=== PATIENT | male | born 1960 | race Caucasian/White ===

== ENCOUNTER 2019-03-27 12:58 | Inpatient (IN) | payer OTHER, SELFPAY ==
--- NOTE | 2019-03-27 13:39 | RAD REPORT ---
EXAM DESCRIPTION: RAD - Chest Single View - 03/27/2019 1:33 pm CLINICAL HISTORY: Syncope Chest pain. COMPARISON: No comparisons FINDINGS: Portable technique limits examination quality. The lungs are grossly clear. The heart is normal in size. No displaced fractures. IMPRESSION: No acute intrathoracic process suspected.
[2019-03-27 14:05] LABS: Basophils % 0.3 % (0-1.3); Eosinophils % 1.6 % (0-4.4); Hematocrit 42.8 % (39.6-49.0); MPV 9.9 fL (7.6-11.3); Monocytes % 6.2 % (3.3-12.3); RBC Red Blood Cell Count 4.77 M/uL (4.33-5.43)
[2019-03-27 14:06] LABS: Protime INR 1.04
[2019-03-27 14:19] LABS: ALT/SGPT 38 U/L (12-78); AST/SGOT 20 U/L (15-37); Albumin 3.9 g/dL (3.4-5.0); Alkaline Phosphatase 96 U/L (45-117); BUN Blood Urea Nitrogen 23 mg/dL (7-18); Bicarbonate 22 mmol/L (21-32); Bilirubin Direct 0.2 mg/dL (0-0.2); Bilirubin Total 0.9 mg/dL (0.2-1.0); Glucose Level 209 mg/dL (74-106); NT PRO-BNP 1570 pg/mL (<125); Potassium 3.9 mmol/L (3.5-5.1); Protein, Total 7.7 g/dL (6.4-8.2); Sodium Level 141 mmol/L (136-145); Troponin (Emerg Dept Use Only) < 0.02 ng/mL (0.0-0.045)
--- NOTE | 2019-03-27 14:57 | RAD REPORT ---
EXAM DESCRIPTION: CT - Chest For Pe Angio - 03/27/2019 2:49 pm CLINICAL HISTORY: Chest pain. SOB, palpitations COMPARISON: No comparisons TECHNIQUE: CT angiogram of the pulmonary arteries was performed with MIP. All CT scans are performed using dose optimization technique as appropriate and may include automated exposure control or mA/KV adjustment according to patient size. FINDINGS: Large bilateral pulmonary thromboembolism is seen including saddle embolism. Mild RV strai n pattern suspected. No acute aortic finding demonstrated. The lungs are mildly emphysematous. No significant pericardial or pleural fluid. Small hiatal hernia. No concerning bony finding. IMPRESSION: Large, extensive, bilateral pulmonary emboli are present including a saddle embolism. Mi ld RV strain pattern suspected. No acute lung findings. The findings were discussed with ER physician Dr. Leger on 03/27/2019 at 2:52 p.m. by telephone.
[2019-03-27] MEDS ORDERED: ENOXAPARIN 100 MG/ML SYR SQ ONE (15:02)
--- NOTE | 2019-03-27 15:23 | EDPHYS ---
Physician Documentation [facility] Name: Eugene Betancourt Age: 58 yrs Sex: Male : 1960 Arrival Date: 03/27/2019 Time: 13:01 Bed 25 Private MD: ED Physician Jeffrey Leger HPI: 03/27 14:16 This 58 yrs old Male presents to ER via EMS with complaints of Syncope. kdr 14:16 The patient has experienced syncope, became unresponsive, collapsed, lost kdr consciousness. Onset: The symptoms/episode began/occurred suddenly, just prior to arrival. Duration: This was a single episode, that lasted an unknown period of time. Context: the episode(s) was witnessed, by a bystander, occurred at work, occurred while the patient was working. 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 Since then he has traveled back to [place] and has had continued SOB, light headed and dizzy with any exertion. Today, he was preparing to get some paperwork signed prior to off-loading his cargo at [place] when he again became light headed and dizzy. He knelt down and then stood back up and passed out. He became unresponsive and was attended to by bystanders. He awoke with people standing over him. He currently has no c/o other in the ED. He does not feel SOB at rest and has no ROSAS or other c.o s/p fall from standing. . Historical: - Allergies: 13:15 No Known Allergies; aj1 - Home Meds: 13:15 meloxicam oral oral [Active]; Lisinopril Oral [Active]; atorvastatin oral oral aj1 [Active]; Metformin Oral [Active]; Omeprazole Oral [Active]; multivitamin oral oral [Active]; Vitamin D Oral [Active]; - PMHx: 13:15 Diabetes - NIDDM; melanoma removed; aj1 - Immunization history:: Flu vaccine is up to date. - Social history:: Smoking status: Patient/guardian denies using tobacco. - Ebola Screening: : Patient denies travel to an Ebola-affected area in the 21 days before illness onset. ROS: 14:16 Constitutional: Negative for fever, chills, and weight loss, Eyes: Negative for injury, kdr pain, redness, and discharge, ENT: Negative for injury, pain, and discharge, Neck: Negative for injury, pain, and swelling, Abdomen/GI: Negative for abdominal pain, nausea, vomiting, diarrhea, and constipation, Back: Negative for injury and pain, : Negative for injury, bleeding, discharge, and swelling, MS/Extremity: Negative for injury and deformity, Skin: Negative for injury, rash, and discoloration, Psych: Negative for depression, anxiety, suicide ideation, homicidal ideation, and hallucinations, Allergy/Immunology: Negative for hives, rash, and allergies, Endocrine: Negative for neck swelling, polydipsia, polyuria, polyphagia, and marked weight changes, Hematologic/Lymphatic: Negative for swollen nodes, abnormal bleeding, and unusual bruising. 14:16 Cardiovascular: Positive for palpitations, heart racing. 14:16 Cardiovascular: Negative for edema, orthopnea, palpitations, paroxysmal nocturnal dyspnea. 14:16 Respiratory: Positive for dyspnea on exertion, shortness of breath, Negative for cough, hemoptysis, orthopnea, pleurisy, sputum production, wheezing. Exam: 14:16 Constitutional: This is a well developed, well nourished patient who is awake, alert, kdr and in no acute distress. Head/Face: Normocephalic, atraumatic. Eyes: Pupils equal round and reactive to light, extra-ocular motions intact. Lids and lashes normal. Conjunctiva and sclera are non-icteric and not injected. Cornea within normal limits. Periorbital areas with no swelling, redness, or edema. Neck: Trachea midline, no thyromegaly or masses palpated, and no cervical lymphadenopathy. Supple, full range of motion without nuchal rigidity, or vertebral point tenderness. No Meningismus. Chest/axilla: Normal chest wall appearance and motion. Nontender with no deformity. No lesions are appreciated. Respiratory: Lungs have equal breath sounds bilaterally, clear to auscultation and percussion. No rales, rhonchi or wheezes noted. No increased work of breathing, no retractions or nasal flaring. Abdomen/GI: Soft, non-tender, with normal bowel sounds. No distension or tympany. No guarding or rebound. No evidence of tenderness throughout. Back: No spinal tenderness. No costovertebral tenderness. Full range of motion. Skin: Warm, dry with normal turgor. Normal color with no rashes, no lesions, and no evidence of cellulitis. MS/ Extremity: Pulses equal, no cyanosis. Neurovascular intact. Full, normal range of motion. Neuro: Awake and alert, GCS 15, oriented to person, place, time, and situation. Cranial nerves II-XII grossly intact. Motor strength 5/5 in all extremities. Sensory grossly intact. Cerebellar exam normal. Normal gait. Psych: Awake, alert, with orientation to person, place and time. Behavior, mood, and affect are within normal limits. 14:16 Cardiovascular: Rate: tachycardic, actual rate is 108 bpm, Rhythm: regular, Pulses: no pulse deficits are appreciated, Heart sounds: normal, Edema: is not appreciated, JVD: is not appreciated. 21:08 ECG was reviewed by the Attending Physician. kdr Vital Signs: 13:15 BP 140 / 94; Pulse 104; Resp 18; Temp 97.6; Pulse Ox 97% on R/A; Pain 0/10; aj1 14:01 BP 149 / 96; Pulse 105; Resp 20; Pulse Ox 98% on R/A; aj1 15:05 BP 141 / 99; Pulse 106; Resp 18; Pulse Ox 98% on R/A; mg2 15:48 BP 159 / 97; Pulse 105; Resp 20; Temp 97.5(TE); Pulse Ox 98% on R/A; aj1 16:30 BP 136 / 92; Pulse 104; Resp 20; Pulse Ox 98% on R/A; aj1 16:56 Weight 83.91 kg (R); aj1 17:30 BP 127 / 90; Pulse 104; Resp 22; Pulse Ox 100% on 40% Venturi mask; aj1 MDM: 14:49 Data reviewed: vital signs, nurses notes, lab test result(s), EKG, radiologic studies. kdr ED course: While in CT, the patient was out of bed (though I had specifically requested the patient to be kept in the bed) to the bathroom. He again became short of breath, dizzy and had a syncopal episode. He had loss of bowel control at that time. He was put on a stretcher and then taken to CT. 15:03 Patient medically screened. kdr 03/27 13:10 Order name: Basic Metabolic Panel kdr 03/27 13:10 Order name: CBC with Diff kdr 03/27 13:10 Order name: LFT's; Complete Time: 16:13 kdr 03/27 13:10 Order name: Magnesium; Complete Time: 16:13 kdr 03/27 13:10 Order name: NT PRO-BNP; Complete Time: 16:13 kdr 03/27 13:10 Order name: PT-INR; Complete Time: 16:13 kdr 03/27 13:10 Order name: Troponin (emerg Dept Use Only); Complete Time: 16:13 kdr 03/27 13:10 Order name: XRAY Chest (1 view); Complete Time: 16:13 kdr 03/27 13:11 Order name: Basic Metabolic Panel; Complete Time: 16:13 EDMS 03/27 13:12 Order name: CBC with Automated Diff; Complete Time: 16:13 EDMS 03/27 14:08 Order name: DD; Complete Time: 16:13 kdr 03/27 14:08 Order name: US Extremity Venous W Compression Jayesh kdr 03/27 14:08 Order name: CT Chest For PE Angio; Complete Time: 16:13 kdr 03/27 15:42 Order name: Echo with Doppler EDCA 03/27 13:10 Order name: EKG; Complete Time: 13:13 kdr 03/27 13:10 Order name: Cardiac monitoring; Complete Time: 13:19 kdr 03/27 13:10 Order name: EKG - Nurse/Tech; Complete Time: 13:49 kdr 03/27 13:10 Order name: IV Saline Lock; Complete Time: 13:49 kdr 03/27 13:10 Order name: Labs collected and sent; Complete Time: 13:48 kdr 03/27 13:10 Order name: O2 Per Protocol; Complete Time: 13:19 kdr 03/27 13:10 Order name: O2 Sat Monitoring; Complete Time: 13:19 kdr 03/27 15:43 Order name: Head C Spine Mpr Wo Con; Complete Time: 16:13 EDMS 03/27 17:19 Order name: US EDMS EC:08 Rate is 102 beats/min. Rhythm is regular, Sinus tachycardia with No ectopy. QRS [place] is kdr Normal. IL interval is normal. QRS interval is normal. QT interval is normal. Clinical impression: Abnormal EKG without significant change, Sinus tachycardia, and No evidence of ischemia. Administered Medications: 14:52 Drug: Lovenox 1 mg/kg Route: Sub-Q; Site: right lower abdomen; aj1 17:35 Follow up: Response: No adverse reaction aj1 Disposition: 03/27/19 15:03 Hospitalization ordered by Alfonso Null for Inpatient Admission. Preliminary diagnosis is Saddle embolus of pulmonary artery with acute cor pulmonale. - Bed requested for Intensive Care Unit. - Status is Inpatient Admission. aj1 - Condition is Serious. - Problem is new. - Symptoms have improved. UTI on Admission? No Signatures: Dispatcher [employer] EDMS Andreina Curiel Angela, RN RN aj1 Jeffrey Leger MD MD kdr Corrections: (The following items were deleted from the chart) 15:53 15:03 Hospitalization Ordered by Alfonso Null DO for Inpatient Admission. Preliminary bd diagnosis is Saddle embolus of pulmonary artery with acute cor pulmonale. Bed requested for Intensive Care Unit. Status is Inpatient Admission. Condition is Serious. Problem is new. Symptoms have improved. UTI on Admission? No. kdr 17:36 15:53 03/27/2019 15:03 Hospitalization Ordered by Alfonso Null DO for Inpatient aj1 Admission. Preliminary diagnosis is Saddle embolus of pulmonary artery with acute cor pulmonale. Bed requested for Intensive Care Unit. Status is Inpatient Admission. Condition is Serious. Problem is new. Symptoms have improved. UTI on Admission? No. bd
--- NOTE | 2019-03-27 15:23 | ER ---
Nurse's Notes [facility] Name: Eugene Betancourt Age: 58 yrs Sex: Male : 1960 Arrival Date: 03/27/2019 Time: 13:01 Bed 25 Private MD: Diagnosis: Saddle embolus of pulmonary artery with acute cor pulmonale Presentation: 03/27 13:11 Presenting complaint: Patient states: He was at work when suddenly he began to feel aj1 really dizzy, the next thing he knows he woke up on the ground. Witnesses on scene states that patient passed out and hit his head. Patient denies any pain at this time. States that for the past 2 weeks he has had issues where he suddenly gets dizzy, feels his heart racing, chest tightness and feels short of breath. Transition of care: patient was not received from another setting of care. Onset of symptoms was March 27, 2019. Risk Assessment: Do you want to hurt yourself or someone else? Patient reports no desire to harm self or others. Initial Sepsis Screen: Does the patient meet any 2 criteria? No. Patient's initial sepsis screen is negative. Does the patient have a suspected source of infection? No. Patient's initial sepsis screen is negative. Care prior to arrival: None. 13:11 Method Of Arrival: EMS: [facility] aj1 13:11 Acuity: DANETTE 3 aj1 Triage Assessment: 13:15 General: Appears in no apparent distress. comfortable, Behavior is calm, cooperative, aj1 appropriate for age. Pain: Denies pain. Neuro: Level of Consciousness is awake, alert, obeys commands, Reports a syncopal episode. Historical: - Allergies: 13:15 No Known Allergies; aj1 - Home Meds: 13:15 meloxicam oral oral [Active]; Lisinopril Oral [Active]; atorvastatin oral oral aj1 [Active]; Metformin Oral [Active]; Omeprazole Oral [Active]; multivitamin oral oral [Active]; Vitamin D Oral [Active]; - PMHx: 13:15 Diabetes - NIDDM; melanoma removed; aj1 - Immunization history:: Flu vaccine is up to date. - Social history:: Smoking status: Patient/guardian denies using tobacco. - Ebola Screening: : Patient denies travel to an Ebola-affected area in the 21 days before illness onset. Screenin:17 Abuse screen: Denies threats or abuse. Denies injuries from another. Nutritional aj1 screening: No deficits noted. Tuberculosis screening: No symptoms or risk factors identified. 17:35 Fall Risk Fall in past 12 months (25 points). No secondary diagnosis (0 pts). IV access aj1 (20 points). Ambulatory Aid- None/Bed Rest/Nurse Assist (0 pts). Gait- Normal/Bed Rest/Wheelchair (0 pts) Mental Status- Oriented to own ability (0 pts). Total Quach Fall Scale indicates High Risk Score (45 or more points). As available patient and family educated on Fall Prevention Program and Strategies. Assessment: 13:17 General: Appears in no apparent distress. comfortable, Behavior is calm, cooperative, aj1 appropriate for age. Pain: Denies pain. Neuro: Level of Consciousness is awake, alert, obeys commands, Oriented to person, place, Speech is normal, Facial symmetry appears normal. Cardiovascular: Patient's skin is warm and dry. Rhythm is sinus tachycardia. Cardiovascular: Reports None palpitations, shortness of breath, syncope, Heart tones S1 S2 present. Respiratory: Airway is patent Respiratory effort is even, unlabored, Respiratory pattern is regular, symmetrical. Respiratory: Reports shortness of breath Breath sounds are clear bilaterally. GI: No signs and/or symptoms were reported involving the gastrointestinal system. : No signs and/or symptoms were reported regarding the genitourinary system. EENT: No signs and/or symptoms were reported regarding the EENT system. Derm: No signs and/or symptoms reported regarding the dermatologic system. Skin is pink, warm \T\ dry. normal. Musculoskeletal: No signs and/or symptoms reported regarding the musculoskeletal system. Circulation, motion, and sensation intact. 13:25 Reassessment: Dr. Snow at bedside, explained to patient that he should not get out aj1 of bed until we have completed his work up. Patient verbalized understanding not to get out of bed. 14:01 Reassessment: Patient appears in no apparent distress at this time. No changes from aj1 previously documented assessment. Patient and/or family updated on plan of care and expected duration. Pain level reassessed. Patient is alert, oriented x 3, equal unlabored respirations, skin warm/dry/pink. 14:38 Reassessment: Rapid response called to ultrasound, patient had gotten up to go to the aj1 bathroom while in ultrasound and had a syncopal episode. Patient states that he stood up to clean himself and he began feeling short of breath and dizzy again and he passed out. C-collar was placed on patient. Patient is alert and oriented x 4 at this time. Respirations even and unlabored. Dr. Snow is present to evaluate patient. Patient was placed on back board and transferred back to [facility]. Patient was taken straight to CT accompanied by myself. 14:39 Reassessment: Dr. Snow notified of critical lab, [id number] [id number]. ss 15:00 Reassessment: Pt back from CT, C collar remains in place. Awaiting results and ss admission orders to be placed. Strict bedrest sign placed on door. 15:06 Reassessment: Dr. Null at bedside examining the patient. mg2 15:47 General: Appears in no apparent distress. comfortable, Behavior is calm, cooperative, aj1 appropriate for age. Pain: Denies pain. Neuro: Level of Consciousness is awake, alert, obeys commands, Oriented to person, place, time, situation, Speech is normal, Facial symmetry appears normal. Cardiovascular: Heart tones S1 S2 present Patient's skin is warm and dry. Rhythm is sinus tachycardia. Respiratory: Airway is patent Respiratory effort is even, unlabored, Respiratory pattern is regular, symmetrical, Breath sounds are clear bilaterally. 16:45 Reassessment: Patient appears in no apparent distress at this time. No changes from aj1 previously documented assessment. Patient and/or family updated on plan of care and expected duration. Pain level reassessed. Patient is alert, oriented x 3, equal unlabored respirations, skin warm/dry/pink. 17:30 Reassessment: Patient appears short of breath, heart rate in the 120's. States that he aj1 was just laying in bed when he started coughing and feeling short of breath. Breath sounds CTA. Notified Dr. Snow who immediately came to bedside to evaluate patient. Patient's O2 sat is 97% on room air. Order received to place patient on O2 \T\ 40% via venti mask. Dr. Null is also at bedside at this time. After 3 minutes patient's heart rate has come back down to 104, O2 sat 100% on venti mask. Patient reports he is feeling better. Okay to transfer patient to ICU per Dr. Snow and Dr. Null. Vital Signs: 13:15 BP 140 / 94; Pulse 104; Resp 18; Temp 97.6; Pulse Ox 97% on R/A; Pain 0/10; aj1 14:01 BP 149 / 96; Pulse 105; Resp 20; Pulse Ox 98% on R/A; aj1 15:05 BP 141 / 99; Pulse 106; Resp 18; Pulse Ox 98% on R/A; mg2 15:48 BP 159 / 97; Pulse 105; Resp 20; Temp 97.5(TE); Pulse Ox 98% on R/A; aj1 16:30 BP 136 / 92; Pulse 104; Resp 20; Pulse Ox 98% on R/A; aj1 16:56 Weight 83.91 kg (R); aj1 17:30 BP 127 / 90; Pulse 104; Resp 22; Pulse Ox 100% on 40% Venturi mask; aj1 ED Course: 13:01 Patient arrived in ED. aj1 13:06 Jeffrey Snow MD is Attending Physician. kdr 13:11 Shelli Mendez, RN is Primary Nurse. aj1 13:13 Triage completed. aj1 13:15 Arm band placed on Patient placed in an exam room. aj1 13:17 Patient has correct armband on for positive identification. Bed in low position. Call aj1 light in reach. Side rails up X 1. 13:17 No provider procedures requiring assistance completed. aj1 13:32 X-ray completed. Portable x-ray completed in exam room. Patient tolerated procedure jb2 well. 13:33 XRAY Chest (1 view) In Process Unspecified. EDMS 13:48 Initial lab(s) drawn, by me, sent to lab. Inserted saline lock: 18 gauge in right lt1 antecubital area, using aseptic technique. 14:45 CT completed. Patient tolerated procedure well. Patient moved to CT. Patient moved back nm from CT. 14:49 CT Chest For PE Angio In Process Unspecified. EDMS 15:00 Alfonso Null DO is Hospitalizing Provider. kdr 15:35 pts called left her phone number, . bd 15:44 Head C Spine Mpr Wo Con In Process Unspecified. EDMS 15:56 Note: us delayed. nurse will call after pt has been cleaned. lc3 16:50 Ultrasound completed. Patient tolerated well. Note: prelim given to dr snow. lc3 17:15 Report given to CLIFF Lazaro in ICU. aj1 17:35 Patient admitted, IV remains in place. aj1 Administered Medications: 14:52 Drug: Lovenox 1 mg/kg Route: Sub-Q; Site: right lower abdomen; aj1 17:35 Follow up: Response: No adverse reaction aj1 Outcome: 15:03 Decision to Hospitalize by Provider. kdr 17:35 Admitted to ICU accompanied by nurse, accompanied by tech, via stretcher, with oxygen, aj1 on monitor, with chart. 17:35 critical 17:35 Discharge instructions given to patient, Instructed on the need for admit, Demonstrated understanding of instructions. 17:36 Patient left the ED. aj1 Signatures: Dispatcher [employer] EDMS Andreina Curiel Angela, RN RN aj1 Jeffrey Snow MD MD kdr Buechter, Jesse jb2 Petrona Garza, RN RN Ania Calderon Nathan nj Gardose, Michele, RN RN [facility] [place], Eleanor [facility]
--- NOTE | 2019-03-27 15:35 | P.HP ---
Certification for Inpatient Patient admitted to: Inpatient With expected LOS: >2 Midnights Patient will require the following post-hospital care: None Practitioner: I am a practitioner with admitting privileges, knowledge of patient current condition, hospital course, and medical plan of care. Services: Services provided to patient in accordance with Admission requirements found in Title 42 Section 412.3 of the Code of Federal Regulations Patient History Date of Service: 03/27/19 Primary Care Provider: FABIAN Greenberg([facility]) Reason for admission: Syncope History of Present Illness: 58-year-old male presented to the emergency room with multiple symptoms including fatigue, shortness of breath and syncope. Patient with history of hypertension, diabetes mellitus type 2 non-insulin dependent, hyperlipidemia, GERD, and history of melanoma. 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 At that time he reported increased fatigue, shortness of breath , headaches and dizziness. He reported some hyperventilation with elevated heart rate. He decided to sit down and hydrate himself. He thought he was overdoing it and felt a little dehydrated. 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 Patient arrived to [facility] with increased shortness of breath, fatigue. In the ER patient evaluated. Prior to obtaining CT of the chest to rule out pulmonary embolism the patient had a syncopal episode after he was getting off the commode. Rapid alert code was called. CT chest was able to be performed. Patient was stabilized. CT head showed large extensive bilateral pulmonary emboli representing saddle embolism with mild right ventricular heart strain pattern. No other lung abnormalities was noted. The patient remained stable. Lovenox at 1 milligram/kilogram given in the emergency room. Patient admitted to ICU for further monitoring and treatment. I attended the rapid alert code. Patient was stabilize. At this time patient stable. Heart rate 106, respiratory rate of 18. Room-air saturations 98%. Blood pressure 141/99. Patient reports no prior history of DVT/PE. No family history of DVT/PE. Patient gets his care in [facility]. He goes to the [facility]. Patient is compliant with medications. Patient to go to ICU for further treatment. Home medications list reviewed: Yes - Past Medical/Surgical History Diabetic: Yes -: Diabetes mellitus type 2, non-insulin dependent -: Hypertension -: Hyperlipidemia -: GERD -: Arthritis -: Sciatica -: History of melanoma -: Melanoma removed from back -: Double hernia repair -: Rotator cuff x2 to the right side -: Cataract surgery Psychosocial/ Personal History: Patient is . 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 He has 1 child. - Family History Father -: Cancer (Grandfather with prostate cancer) - Social History Smoking Status: Never smoker Alcohol use: Yes CD- Drugs: No Caffeine use: Yes Place of Residence: Home Review of Systems General: As per HPI Eyes: Unremarkable Respiratory: Cough, Shortness of Breath, SOB with Excertion, As per HPI Cardiovascular: Light Headedness, As per HPI Gastrointestinal: Unremarkable Genitourinary: Unremarkable Musculoskeletal: Unremarkable Integumentary: Unremarkable Neurological: As per HPI Lymphatics: Unremarkable Physical Examination - Physical Exam General: Alert, In no apparent distress, Oriented x3, Cooperative HEENT: Atraumatic, Normocephalic, PERRLA, Mucous membr. moist/pink Neck: Supple, JVD distended (Mild JVD distention) Respiratory: Clear to auscultation bilaterally, Normal air movement Cardiovascular: Abnormal pulses (Sinus tachycardia) Gastrointestinal: Normal bowel sounds, Soft and benign, Non-distended, No tenderness, No masses, No rebound, No guarding Musculoskeletal: No erythema, No tenderness, No warmth Integumentary: No tenderness/swelling, No erythema, No warmth, No cyanosis Neurological: Normal speech, Normal strength at 5/5 x4 extr, Normal tone, Normal affect - Studies Laboratory Data (last 24 hrs) 03/27/19 13:47: PT 12.2, INR 1.04 03/27/19 13:47: WBC 8.6, Hgb 14.3, Hct 42.8, Plt Count 173 03/27/19 13:47: Sodium 141, Potassium 3.9, BUN 23 H, Creatinine 1.35 H, Glucose 209 H, Magnesium 2.0, Total Bilirubin 0.9, AST 20, ALT 38, Alkaline Phosphatase 96 Assessment and Plan - Plan Impression: Shortness of breath with syncope secondary to extensive bilateral pulmonary saddle embolism with mild right ventricular heart strain Diabetes mellitus type 2, non insulin dependent Hypertension Hyperlipidemia GERD Plan: Shortness of breath with syncope secondary to extensive bilateral pulmonary saddle embolism with mild right ventricular heart strain: Patient will be admitted to ICU. Lovenox at 1 milligram/kilogram subcu twice daily has been initiated. Will continue monitor closely. Will maintain sats above 90%. Will obtain venous Doppler of the lower extremities and echocardiogram to further evaluate. Will consult cardiology and pulmonology to further evaluate. Await recommendations. Will continue to monitor closely. Will keep the patient at bed rest at this time. Anticipate discharge in the next 2-5 days pending clinical improvement. Diabetes mellitus type 2, non insulin dependent: Will start with insulin sliding scale. Will monitor Accu-Cheks. Hypertension: Restart lisinopril. Will monitor and adjust appropriately. Hyperlipidemia: Restart Lipitor. GERD: Restart medication. Discharge Plan: Home Plan to discharge in: Greater than 2 days - Advance Directives Does patient have a Living Will: No Does patient have a Durable POA for Healthcare: No - Code Status/Comfort Care Code Status Assessed: Yes (Patient is full code.) Time Spent Managing Pts Care (In Minutes): 65
--- NOTE | 2019-03-27 15:59 | RAD REPORT ---
EXAM DESCRIPTION: CT - [id number] - 03/27/2019 3:38 pm CLINICAL HISTORY: Fall, head and neck injury COMPARISON: None. TECHNIQUE: Axial 5 mm thick images of the head were obtained. Axial 2 mm thick images of the cervic al spine were obtained with sagittal and coronal reconstruction images generated and reviewed. All CT scans are performed using dose optimization technique as appropriate and may include automated exposure control or mA/KV adjustment according to patient size. FINDINGS: No intracranial hemorrhage, mass, edema or acute intracranial finding. No suspicion for acute infarct ion. No extra-axial fluid collections. Mastoid air cells are clear. No globe or orbit abnormality see n. Contrast is present in the vasculature from earlier contrast CT chest examination. A 2.8 centimeter fluid or low-density mass is present along the floor the right maxillary sinus. This causes thinning and possible wall disruption along the lateral and inferior floor the sinus. This ma y be a sinus retention cyst or possibly a dentigerous cyst. Long-term significance is doubtful. No co mparison available to establish growth or stability. Cervical bodies are normal in height. AP alignment is normal. C1 ring is intact. C1 body is normally positioned relative to the skullbase. There is approximately 15 degrees rotation of the C2 body relat bianka to C1. C3-C7 are position normally relative to C2. No vertebral body fractures seen. Significant disc space narrowing present at C3-4 with borderline spinal stenosis and bilateral foraminal stenosis . Severe left facet degenerative change present at C4-5. Disc space narrowing and endplate spurring c hanges at C5-6 cause bilateral bony foraminal encroachment. No paraspinal mass or hematoma. IMPRESSION: No hemorrhage, edema or acute CT Head finding. No fracture of the cervical spine. Prominent degenerative change present as detailed. Approximately 15 degrees of type I atlantoaxial rotary subluxation. There is overlap between posttra umatic subluxation and physiologic subluxation from patient positioning. No suspicion for dens or tra nsverse ligament injury. Rotation from muscle spasm should be self reducing with time. Approximately 2.8 centimeter low-density mass along the floor the right maxillary sinus. This could b e sinus or dental in origin. Sinus wall is thinned and possibly disrupted in some places. Long-term s ignificance is doubtful and malignant etiology not suspected.
[2019-03-27] MEDS ORDERED: ONDANSETRON 4 MG/2 ML VIAL IV PRN (17:06)
[2019-03-27] MEDS ORDERED: TRAMADOL HCL 50 MG TAB PO PRN (17:06)
[2019-03-27] MEDS ORDERED: GABAPENTIN 100 MG CAP PO PRN (17:06)
--- NOTE | 2019-03-27 17:14 | RAD REPORT ---
EXAM DESCRIPTION: US - Extrem Venous W Compress Jayesh - 03/27/2019 5:00 pm COMPARISON: None. TECHNIQUE: Real-time sonographic evaluation of the bilateral lower extremity common femoral, superfi cial femoral, popliteal and posterior tibial veins was performed. FINDINGS: Normal compressibility, flow augmentation, phasic flow and spontaneous flow are identified in the left lower extremity common femoral, superficial femoral, popliteal and posterior tibial vein s. No intraluminal filling defects seen. Normal compressibility flow augmentation and phasic flow seen in the right common femoral and superfi cial femoral veins. There is partially occlusive thrombus in the right popliteal vein. More distally the right leg venous system is clear. No mass or abnormal fluid collection in the soft tissues. IMPRESSION: Partially occlusive thrombus in the right popliteal vein.
[2019-03-27] MEDS: LISINOPRIL 10 MG TAB PO SCH (18:28)
[2019-03-27 19:44] LABS: CKMB Creatine Kinase MB 5.7 ng/mL (0.3-3.6); Creatine Phosphokinase 160 U/L (39-308); Troponin I < 0.02 ng/mL (0.0-0.045)
[2019-03-27] MEDS: INSULIN -REGULAR HUMAN 50 UNIT/0.5 ML ML SQ SCH (21:00)
[2019-03-27] MEDS: ATORVASTATIN 40 MG TAB PO SCH (22:05)
[2019-03-27] MEDS ORDERED: ALTEPLASE 100 ML IV ONE (22:52)
[2019-03-28] MEDS ORDERED: ENOXAPARIN 80 MG/0.8 ML SQ SCH ×2 (03:00→06:00)
[2019-03-28 03:20] LABS: Absolute Lymphocytes (CBC) 1.8 K/uL (0.7-4.9); Basophils % 0.3 % (0-1.3); Eosinophils % 2.8 % (0-4.4); Hematocrit 39.9 % (39.6-49.0); Lymphocytes % 26.5 % (15.3-44.8); MPV 10.2 fL (7.6-11.3); Monocytes % 8.3 % (3.3-12.3); RBC Red Blood Cell Count 4.41 M/uL (4.33-5.43)
[2019-03-28 03:35] LABS: CKMB Creatine Kinase MB 5.7 ng/mL (0.3-3.6); Creatine Phosphokinase 163 U/L (39-308); Troponin I < 0.02 ng/mL (0.0-0.045)
[2019-03-28 03:41] LABS: Magnesium 2.1 mg/dL (1.8-2.4); Potassium 3.9 mmol/L (3.5-5.1); Thyroid Stimulating Hormone 1.57 uIU/mL (0.360-3.740)
[2019-03-28] MEDS: PANTOPRAZOLE 40MG TABLET PO SCH (05:55)
[2019-03-28] MEDS: INSULIN -REGULAR HUMAN 50 UNIT/0.5 ML ML SQ SCH ×4 (07:30→23:01)
[2019-03-28] MEDS: LISINOPRIL 10 MG TAB PO SCH (08:33)
[2019-03-28] MEDS: ACETAMINOPHEN 500 MG TAB PO PRN (08:59)
[2019-03-28] MEDS ORDERED: ASPIRIN EC 81 MG TAB PO SCH (09:00)
[2019-03-28] MEDS ORDERED: PROMETH/COD 6.25/10MG SYRUP 5ML PO PRN (09:16)
[2019-03-28] MEDS: ALBUTEROL 2.5 MG/3 ML NEB SOL NEB SCH ×5 (09:20→23:20)
[2019-03-28] MEDS: IPRATROPIUM BROM 0.5MG/2.5ML NEB SCH ×5 (09:20→23:20)
[2019-03-28] MEDS ORDERED: ALBUTEROL 2.5 MG/3 ML NEB SOL ONE (09:29)
[2019-03-28] MEDS ORDERED: IPRATROPIUM BROM 0.5MG/2.5ML ONE (09:29)
--- NOTE | 2019-03-28 09:42 | P.PN ---
Date of Service: 03/28/19 Reason for evaluation: evaluation regarding saddle emboli SUBJECTIVE: doing well with no new complaints OBJECTIVE: Vital Signs: reviewed General: WNL CV: RRR w/ no murmur Lungs: Clear bilaterally Abd: Soft NT/distended BS + Ext: No C/C/E ASSESSMENT: 1. Saddle emboli with popliteal DVT PLAN: 1. Continue anticoagulation 2. Possible tPA in a.m./ Pulmonary to reassess patient in the morning 3. Echocardiogram pending 4. GI and DVT prophylaxis
--- NOTE | 2019-03-28 09:51 | P.PN ---
Subjective Date of Service: 03/28/19 Primary Care Provider: FABIAN Greenberg([facility]) Chief Complaint: Syncope Subjective: Doing well (Patient doing well this time. Vital signs stable as long as he is not ambulating or moving around.) Physical Examination - Vital Signs Temperature: 97.9 F Blood Pressure: 129/91 Pulse: 98 Respirations: 19 Pulse Ox (%): 99 - Physical Exam General: Alert, In no apparent distress, Oriented x3, Cooperative HEENT: Atraumatic Neck: Supple Respiratory: Clear to auscultation bilaterally, Normal air movement Cardiovascular: Normal pulses, Regular rate/rhythm Gastrointestinal: Normal bowel sounds, Soft and benign, Non-distended Neurological: Normal speech, Normal strength at 5/5 x4 extr, Normal tone - Studies Laboratory Data (last 24 hrs) 03/27/19 13:47: PT 12.2, INR 1.04 03/27/19 13:47: WBC 8.6, Hgb 14.3, Hct 42.8, Plt Count 173 03/27/19 13:47: Sodium 141, Potassium 3.9, BUN 23 H, Creatinine 1.35 H, Glucose 209 H, Magnesium 2.0, Total Bilirubin 0.9, AST 20, ALT 38, Alkaline Phosphatase 96 Medications List Reviewed: Yes Assessment & Plan Discharge Plan: Home Plan to discharge in: Greater than 2 days Physician Review Additional Text: Impression: Shortness of breath with syncope secondary to extensive bilateral pulmonary saddle embolism with mild right ventricular heart strain complicated with right popliteal DVT Diabetes mellitus type 2, non insulin dependent Hypertension Hyperlipidemia GERD Abnormal CT scan: Type 1 atlantoaxial rotatory subluxation and 2.8 cm low- density mass to the right floor of right maxillary sinus Acute renal insufficiency Plan: Shortness of breath with syncope secondary to extensive bilateral pulmonary saddle embolism with mild right ventricular heart strain complicated with right popliteal DVT: Patient remains in ICU. Patient on Lovenox at 1 milligram/ kilogram subcu twice daily. Venous Doppler did show a right popliteal DVT. Patient to have echocardiogram to evaluate heart strain. Patient may require tPA. Await recommendations by Cardiology and pulmonology. Will keep the patient at bed rest. Will continue to monitor closely. Likely discharge in the next 5 days pending clinical improvement. Will need to discuss with pulmonology with discharge plan of care as patient lives out of [facility]. Diabetes mellitus type 2, non insulin dependent: Continue with insulin sliding scale. Will monitor Accu-Cheks. Hypertension: Continue with lisinopril. Will monitor and adjust appropriately. Hyperlipidemia: Continue with Lipitor. GERD: Continue with medication. Abnormal CT scan: CT neck showing 15 decrease of type 1 atlantoaxial rotary subluxation. It also shows a 2.8 cm low-density mass along the right floor of the right maxillary sinus. This could be retention cyst. Will discuss with radiology. Malignancy etiology not suspected. Acute renal insufficiency: Will continue to monitor closely. Patient may have underlying chronic renal disease. Will monitor lab. Time Spent Managing Pts Care (In Minutes): 55
--- NOTE | 2019-03-28 11:47 | P.CNS ---
Date of Consult: 03/28/19 Primary Care Provider: FABIAN Greenberg(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 [place] he is finding he is resting in complains of dyspnea on very mild exceed no prior history of thromboembolism no recent surgeries otherwise he is pretty healthy does not smoke Allergies No Known Allergies Allergy (Unverified 03/27/19 15:50) Home Medications: Atorvastatin Calcium [Lipitor] 20 mg PO BEDTIME 03/28/19 Erythromycin Opth [Erythromycin Eye Ointment] 3.5 appl OP TID 03/28/19 Gabapentin [Neurontin*] 1,200 mg PO BID 03/28/19 Lisinopril [Prinivil] 5 mg PO DAILY 03/28/19 Meloxicam [Mobic] 15 mg PO DAILY 03/28/19 Metformin HCl [Glucophage] 2 tab PO BIDWM 03/28/19 Omeprazole 20 mg PO DAILY 03/28/19 - Past Medical/Surgical History Diabetic: Yes -: Diabetes mellitus type 2, non-insulin dependent -: Hypertension -: Hyperlipidemia -: GERD -: Arthritis -: Sciatica -: History of melanoma -: Melanoma removed from back -: Double hernia repair -: Rotator cuff x2 to the right side -: Cataract surgery Psychosocial/ Personal History: 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 - Family History Father Medical History: Cancer - Social History Alcohol use: Yes CD- Drugs: No Caffeine use: Yes Place of Residence: Home Physical Examination Temp Pulse Resp BP Pulse Ox 97.9 F 98 H 19 129/91 H 99 03/28/19 09:52 03/28/19 09:52 03/28/19 09:52 03/28/19 09:52 03/28/19 09:52 General: Alert, In no apparent distress, Oriented x3 Respiratory: Clear to auscultation bilaterally Cardiovascular: No edema, Regular rate/rhythm, Normal S1 S2 Laboratory Data (last 24 hrs) 03/27/19 13:47: PT 12.2, INR 1.04 03/27/19 13:47: WBC 8.6, Hgb 14.3, Hct 42.8, Plt Count 173 03/27/19 13:47: Sodium 141, Potassium 3.9, BUN 23 H, Creatinine 1.35 H, Glucose 209 H, Magnesium 2.0, Total Bilirubin 0.9, AST 20, ALT 38, Alkaline Phosphatase 96 - Problems (1) Pulmonary embolism Current Visit: Yes Status: Acute Plan: Patient is 58 years of age admitted with some massive pulmonary embolism with DVT no evidence of hypotension or hypoxemia he still has some chest discomfort CT scan reviewed he does have a significant clot burden . Although patient has had no hypertension or hypoxemia of right ventricular dilatation he is very symptomatic unable to even get up from the bed to complaining of shortness of breath when we tried to sit him appdarrius Garcia had a syncopal attack will plan to proceed with the thrombolytics therapy patient aware of the benefits and side effects which including bleeding Qualifiers: Acute cor pulmonale presence: without acute cor pulmonale
[2019-03-28] MEDS ORDERED: ALTEPLASE 100 MG/100 ML VIAL IV ONE (11:55)
[2019-03-28] MEDS ORDERED: NA CHLORIDE 0.9% 1,000 ML IV SCH (12:00)
--- NOTE | 2019-03-28 12:02 | ECHO ---
HEIGHT: 5 ft 8 in WEIGHT: 188 lb 3.2 oz DATE OF STUDY: 03/28/[address]: Alfonso Null DO 2-DIMENSIONAL: YES M.MODE: YES DOPPLER: YES COLOR FLOW: YES TDS: NO PORTABLE: YES DEFINITY: NO BUBBLE STUDY: NO DIAGNOSIS: BILATERAL EXTENSIVE PULMONARY EMBOLISM WITH RV STRAIN CARDIAC HISTORY: CATHERIZATION: NO SURGERY: NO PROSTHETIC VALVE: NO PACEMAKER: NO MEASUREMENTS (cm) DIASTOLIC (NORMALS) SYSTOLIC (NORMALS) IVSd 0.9 (0.6-1.2) LA Diam 3.2 (1.9-4.0) LVEF 51% LVIDd 3.1 (3.5-5.7) LVIDs 2.3 (2.0-3.5) %FS 25% LVPWd 1.0 (0.6-1.2) Ao Diam 3.0 (2.0-3.7) 2 DIMENSIONAL ASSESSMENT: RIGHT ATRIUM: NORMAL LEFT ATRIUM: NORMAL RIGHT VENTRICLE: NORMAL LEFT VENTRICLE: NORMAL TRICUSPID VALVE: NORMAL MITRAL VALVE: NORMAL PULMONIC VALVE: NORMAL AORTIC VALVE: NORMAL PERICARDIAL EFFUSION: NONE AORTIC ROOT: NORMAL LEFT VENTRICULAR WALL MOTION: NORMAL DOPPLER/COLOR FLOW: MILD TRICUSPID REGURGITATION. COMMENTS: MILD TRICUSPID REGURGITATION. MILD PULMONARY HYPERTENSION. RIGHT VENTRICULAR SYSTOLIC PRESSURE 44 mmHg. NORMAL LEFT VENTRICULAR EJECTION FRACTION AND SIZE. NO EFFUSION. TECHNOLOGIST: Flako ALVARADO
[2019-03-28] MEDS: HYDROCODONE/CHLORPHEN 5 ML/OSYR PO PRN (12:07)
[2019-03-28] MEDS ORDERED: ALTEPLASE 100 ML IV ONE (14:00)
[2019-03-28] MEDS ORDERED: NA CHLORIDE 0.9% 500 ML ONE (14:34)
--- NOTE | 2019-03-28 14:52 | EKG ---
Test Date: 2019-03-27 Test Time: 13:39:21 Rod Pointer: YANNA MEASUREMENT RESULTS: Intervals: Rate: 102 NJ: 154 QRSD: 82 QT: 382 QTc: 497 Arlee: P: 57 NJ: 154 QRS: 8 T: 1 INTERPRETIVE STATEMENTS: Sinus tachycardia ST & T wave abnormality, consider anterior ischemia Abnormal ECG No previous ECG available for comparison Electronically Signed On 03-28-19 14:47:37 CDT by Khai Paez
[2019-03-28] MEDS ORDERED: HEPARIN/D5W 25,000 UNIT/500 ML BAG IV SCH (20:00)
[2019-03-28] MEDS: ATORVASTATIN 40 MG TAB PO SCH (20:07)
[2019-03-28 20:31] LABS: Absolute Lymphocytes (CBC) 1.5 K/uL (0.7-4.9); Basophils % 0.2 % (0-1.3); Hematocrit 38.9 % (39.6-49.0); Lymphocytes % 20.6 % (15.3-44.8); MPV 9.9 fL (7.6-11.3); Monocytes % 7.9 % (3.3-12.3); RBC Red Blood Cell Count 4.33 M/uL (4.33-5.43)
[2019-03-28 20:41] LABS: Protime INR 1.19
[2019-03-29] MEDS: IPRATROPIUM BROM 0.5MG/2.5ML NEB SCH ×3 (03:05→11:15)
[2019-03-29] MEDS: ALBUTEROL 2.5 MG/3 ML NEB SOL NEB SCH ×3 (03:05→11:15)
[2019-03-29 04:34] LABS: Absolute Lymphocytes (CBC) 1.6 K/uL (0.7-4.9); Basophils % 0.2 % (0-1.3); Eosinophils % 2.9 % (0-4.4); Hematocrit 36.6 % (39.6-49.0); Lymphocytes % 21.6 % (15.3-44.8); MPV 10.1 fL (7.6-11.3); RBC Red Blood Cell Count 4.11 M/uL (4.33-5.43)
[2019-03-29 04:42] LABS: Magnesium 1.8 mg/dL (1.8-2.4); Potassium 3.6 mmol/L (3.5-5.1)
[2019-03-29] MEDS: PANTOPRAZOLE 40MG TABLET PO SCH (06:08)
[2019-03-29] MEDS: INSULIN -REGULAR HUMAN 50 UNIT/0.5 ML ML SQ SCH ×4 (08:16→19:58)
[2019-03-29] MEDS: ENOXAPARIN 100 MG/ML SYR SQ SCH ×2 (08:17→19:57)
--- NOTE | 2019-03-29 08:37 | CON ---
Date of Consultation: 03/28/2019 Reason For Consultation: Pulmonary embolus and syncope. History Of Present Illness: Mr. 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 Has had a history of melanoma in the past that was cured in 2016 and he gets checked every 6 months for recurrence and that has been negative. He has a history of hypertension, diabetes, dyslipidemia, and osteoarthritis. He came in with a syncopal ep isode and was found cyanotic, basically improved after oxygenation and Lovenox therapy. A CT angiogr aphy showed multiple pulmonary emboli bilaterally with a saddle embolus. He had a D-dimer of 7379. His BNP was 1570. Creatinine is 1.34. His cholesterol was 281, HDL was 33. His EKG was nonspecific . Chest x-ray was nonspecific. He is improved but continues to be significantly short of breath. B robson I saw him, an echocardiogram was done revealing no right atrial or right ventricular dilatation , but he had pulmonary hypertension with right ventricular systolic pressure of 45 mmHg. Allergies: NONE. Review of Systems: Negative. Social History: Negative. Family History: Noncontributory. Medications: Listed by Dr. Null. Physical Examination: General: He was in no acute distress as long as he was not having any activities. Vital Signs: Stable. He was in sinus rhythm. O2 saturations were adequate on O2 nasal cannula. SU NT: Negative. Neck: Supple, no bruit. Chest: Clear. Cardiac Exam: Revealed a regular rhythm and rate. No gallops or rubs. He had 1/6 holosystolic murm ur at the third right intercostal space which did not radiate. Abdomen: Benign. Extremities: Revealed no clubbing, cyanosis, or edema. Impression And Plan: Bilateral pulmonary emboli with saddle embolus, pulmonary hypertension, on Love nox, improved, but he is still slightly short of breath. Dr. Cheney is seeing the patient and he i s considering thrombolytics depending on his O2 saturation and progress. He is now on Lovenox, aspir in, Lipitor, insulin, Prinivil, Protonix, and Zofran. His other problems include dyslipidemia, hyper tension, diabetes. Those seem to be well controlled. His melanoma has been cured. 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 He will obviou sly have to be on at least a 6-month anticoagulation with Xarelto or Eliquis when he leaves the [facility]. I leave that up to Dr. Cheney and Dr. Null. Broadly, hematological workup including protei n C, protein S, antithrombin III, and factor V Leiden should probably be checked on him. NAI/GONZALO Voice ID: [id number] Report ID: [id number]
[2019-03-29] MEDS ORDERED: LISINOPRIL 5 MG TAB PO SCH (09:00)
[2019-03-29] MEDS ORDERED: ALBUTEROL 2.5 MG/3 ML NEB SOL NEB PRN (12:00)
--- NOTE | 2019-03-29 12:03 | P.PN ---
Subjective Date of Service: 03/29/19 Primary Care Provider: FABIAN Greenberg([facility]) Chief Complaint: Pulmonary embolism Subjective: Improving (Doing much better. No chest pressure. s/P TPA) Review of Systems General: Weakness Respiratory: Cough, Shortness of Breath Physical Examination - Vital Signs Temperature: 97.9 F Blood Pressure: 117/65 Pulse: 94 Respirations: 16 Pulse Ox (%): 99 - Physical Exam General: Alert, In no apparent distress, Oriented x3 HEENT: Atraumatic Respiratory: Clear to auscultation bilaterally Cardiovascular: No edema, Regular rate/rhythm - Studies Medications List Reviewed: Yes Assessment & Plan - Problems (Diagnosis) (1) Pulmonary embolism Current Visit: Yes Status: Acute Plan: s/p massive PE s/p thrombolytic TX. Tx to floor Ambulate. vitals stable. D/C lisinpril for now. PT Possible D/C am. Life long anticoagualtion Qualifiers: Acute cor pulmonale presence: without acute cor pulmonale Physician Review Additional Text: Impression: Shortness of breath with syncope secondary to extensive bilateral pulmonary saddle embolism with mild right ventricular heart strain complicated with right popliteal DVT Diabetes mellitus type 2, non insulin dependent Hypertension Hyperlipidemia GERD Abnormal CT scan: Type 1 atlantoaxial rotatory subluxation and 2.8 cm low- density mass to the right floor of right maxillary sinus Acute renal insufficiency Plan: Shortness of breath with syncope secondary to extensive bilateral pulmonary saddle embolism with mild right ventricular heart strain complicated with right popliteal DVT: Patient remains in ICU. Patient on Lovenox at 1 milligram/ kilogram subcu twice daily. Venous Doppler did show a right popliteal DVT. Patient to have echocardiogram to evaluate heart strain. Patient may require tPA. Await recommendations by Cardiology and pulmonology. Will keep the patient at bed rest. Will continue to monitor closely. Likely discharge in the next 5 days pending clinical improvement. Will need to discuss with pulmonology with discharge plan of care as patient lives out of [facility]. Diabetes mellitus type 2, non insulin dependent: Continue with insulin sliding scale. Will monitor Accu-Cheks. Hypertension: Continue with lisinopril. Will monitor and adjust appropriately. Hyperlipidemia: Continue with Lipitor. GERD: Continue with medication. Abnormal CT scan: CT neck showing 15 decrease of type 1 atlantoaxial rotary subluxation. It also shows a 2.8 cm low-density mass along the right floor of the right maxillary sinus. This could be retention cyst. Will discuss with radiology. Malignancy etiology not suspected. Acute renal insufficiency: Will continue to monitor closely. Patient may have underlying chronic renal disease. Will monitor lab.
--- NOTE | 2019-03-29 12:25 | P.PN ---
Subjective Date of Service: 03/29/19 Primary Care Provider: FABIAN Greenberg([place] [place] [facility]) Chief Complaint: Pulmonary embolism Subjective: Other (Patient doing better. Patient received tPA yesterday.) Physical Examination - Vital Signs Temperature: 97.9 F Blood Pressure: 117/65 Pulse: 94 Respirations: 16 Pulse Ox (%): 99 - Physical Exam General: Alert, In no apparent distress HEENT: Atraumatic Neck: Supple Respiratory: Clear to auscultation bilaterally, Normal air movement Cardiovascular: Normal pulses, Regular rate/rhythm Neurological: Normal speech, Normal strength at 5/5 x4 extr, Normal tone - Studies Medications List Reviewed: Yes Assessment & Plan Discharge Plan: Other (Home verses skilled placement, still working [facility]) Plan to discharge in: 48 Hours Physician Review Additional Text: Impression: Shortness of breath with syncope secondary to extensive bilateral pulmonary saddle embolism with mild right ventricular heart strain complicated with right popliteal DVT Diabetes mellitus type 2, non insulin dependent Hypertension Hyperlipidemia GERD Abnormal CT scan: Type 1 atlantoaxial rotatory subluxation and 2.8 cm low- density mass to the right floor of right maxillary sinus Acute renal insufficiency Plan: Shortness of breath with syncope secondary to extensive bilateral pulmonary saddle embolism with mild right ventricular heart strain complicated with right popliteal DVT: Patient remains in ICU. Patient was given tPA yesterday. Patient now transition back to [facility]. Will continue to monitor closely. What physical therapy assess ambulation. Case discussed at length with pulmonology. Pulmonology anticipates significant improvement. Will have physical therapy assess ambulation. If patient continues to have hypoxia and difficulty breathing. Patient may require further cardiovascular intervention which may require transfer. Will continue to pursue transfer to [facility] at patient request. If the patient continues to improve then will transition to oral chronic anti coagulation therapy. Patient will require lifelong chronic anti coagulation therapy. Patient plans to go back to [place] at discharge. Will discuss with patient and family further. It Diabetes mellitus type 2, non insulin dependent: Continue with insulin sliding scale. Will monitor Accu-Cheks. Hypertension: Continue with lisinopril. Will monitor and adjust appropriately. Hyperlipidemia: Continue with Lipitor. GERD: Continue with medication. Abnormal CT scan: CT neck showing 15 decrease of type 1 atlantoaxial rotary subluxation. It also shows a 2.8 cm low-density mass along the right floor of the right maxillary sinus. This could be retention cyst. Will discuss with radiology. Malignancy etiology not suspected. Will recommend ENT evaluation as an outpatient. Acute renal insufficiency: Will continue to monitor closely. Overall stable. Will monitor closely. Patient may have underlying chronic renal disease. Time Spent Managing Pts Care (In Minutes): 55
--- NOTE | 2019-03-29 12:57 | PN ---
Mr. Betancourt has had a massive pulmonary embolus with saddle embolus and large clots in both right an d left pulmonary arteries. He seems to be doing better. His echocardiogram indicated a right ventri cular systolic pressure of 44, although when adding what seemed to be the correct right atrial pressu re was probably more like 55-58. I think a repeat echocardiogram tomorrow might be useful to track h ow much pulmonary hypertension he has to make sure it is getting better. HUY Voice ID: [id number] Report ID: [id number]
[2019-03-29] MEDS: ACETAMINOPHEN 500 MG TAB PO PRN (13:04)
[2019-03-29] MEDS: HYDROCODONE/CHLORPHEN 5 ML/OSYR PO PRN (13:04)
[2019-03-29] MEDS: ATORVASTATIN 40 MG TAB PO SCH (19:58)
[2019-03-29 21:47] VITALS: BP 151/93; TEMP 98.4; BMI 29.2
[2019-03-30 04:23] LABS: Absolute Lymphocytes (CBC) 1.4 K/uL (0.7-4.9); Basophils % 0.3 % (0-1.3); Eosinophils % 4.7 % (0-4.4); Hematocrit 35.4 % (39.6-49.0); Lymphocytes % 23.9 % (15.3-44.8); MPV 9.6 fL (7.6-11.3); Monocytes % 9.2 % (3.3-12.3); RBC Red Blood Cell Count 3.96 M/uL (4.33-5.43)
[2019-03-30 04:44] LABS: Magnesium 1.9 mg/dL (1.8-2.4); Potassium 3.7 mmol/L (3.5-5.1)
[2019-03-30] MEDS: INSULIN -REGULAR HUMAN 50 UNIT/0.5 ML ML SQ SCH ×2 (07:30→11:30)
[2019-03-30] MEDS: ENOXAPARIN 100 MG/ML SYR SQ SCH (08:51)
[2019-03-30] MEDS ORDERED: POTASSIUM CL SA 10 MEQ TAB PO ONE (09:00)
--- NOTE | 2019-03-30 09:57 | P.DS ---
Admission Date: 03/27/19 Discharge Date: 03/30/19 Primary Care Provider: FABIAN Greenberg([facility]) Disposition: ROUTINE DISCHARGE Discharge Condition: GOOD Reason for Admission: Pulmonary embolism Consultations: Cardiology-Dr. Paez Pulmonary-Dr. Cheney Procedures: CT scan: FINDINGS: Large bilateral pulmonary thromboembolism is seen including saddle embolism. Mild RV strain pattern suspected. No acute aortic finding demonstrated. The lungs are mildly emphysematous. No significant pericardial or pleural fluid. Small hiatal hernia. No concerning bony finding. IMPRESSION: Large, extensive, bilateral pulmonary emboli are present including a saddle embolism. Mild RV strain pattern suspected. No acute lung findings. ECHO: Ejection fraction 51% LEFT VENTRICULAR WALL MOTION: NORMAL DOPPLER/COLOR FLOW: MILD TRICUSPID REGURGITATION. COMMENTS: MILD TRICUSPID REGURGITATION. MILD PULMONARY HYPERTENSION. RIGHT VENTRICULAR SYSTOLIC PRESSURE 44 mmHg. NORMAL LEFT VENTRICULAR EJECTION FRACTION AND SIZE. NO EFFUSION. Venous Doppler: FINDINGS: Normal compressibility, flow augmentation, phasic flow and spontaneous flow are identified in the left lower extremity common femoral, superficial femoral, popliteal and posterior tibial veins. No intraluminal filling defects seen. Normal compressibility flow augmentation and phasic flow seen in the right common femoral and superficial femoral veins. There is partially occlusive thrombus in the right popliteal vein. More distally the right leg venous system is clear. No mass or abnormal fluid collection in the soft tissues. IMPRESSION: Partially occlusive thrombus in the right popliteal vein. Medical Problem List: Shortness of breath with syncope secondary to extensive bilateral pulmonary saddle embolism with mild right ventricular heart strain complicated with right popliteal DVT Diabetes mellitus type 2, non insulin dependent Hypertension Hyperlipidemia GERD with hiatal hernia Abnormal CT scan: Type 1 atlantoaxial rotatory subluxation and 2.8 cm low- density mass to the right floor of right maxillary sinus Acute renal insufficiency Diabetic neuropathy Brief History of Present Illness: 58-year-old male presented to the emergency room with multiple symptoms including fatigue, shortness of breath and syncope. Patient with history of hypertension, diabetes mellitus type 2 non-insulin dependent, hyperlipidemia, GERD, and history of melanoma. 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 At that time he reported increased fatigue, shortness of breath , headaches and dizziness. He reported some hyperventilation with elevated heart rate. He decided to sit down and hydrate himself. He thought he was overdoing it and felt a little dehydrated. 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 Patient arrived to [facility] with increased shortness of breath, fatigue. In the ER patient evaluated. Prior to obtaining CT of the chest to rule out pulmonary embolism the patient had a syncopal episode after he was getting off the commode. Rapid alert code was called. CT chest was able to be performed. Patient was stabilized. CT head showed large extensive bilateral pulmonary emboli representing saddle embolism with mild right ventricular heart strain pattern. No other lung abnormalities was noted. The patient remained stable. Lovenox at 1 milligram/kilogram given in the emergency room. Patient admitted to ICU for further monitoring and treatment. Patient reports no prior history of DVT/PE. No family history of DVT/PE. Patient gets his care in [facility] at the [facility]. Patient is compliant with medications. Patient to go to ICU for further treatment. Hospital Course: Patient presented with shortness of breath with syncopal episode. Patient had been traveling from [place] to [place]. Patient originally from [place]. Patient found to have extensive bilateral pulmonary saddle embolism with mild right ventricular heart strain complicated with right popliteal DVT. Patient was admitted to ICU for treatment. Patient seen and evaluated by Pulmonology and Cardiology. Patient initially started on a Lovenox. Pulmonology recommended tPA. Lovenox was transitioned to tPA due to increasing shortness of breath. Patient tolerated tPA well. Patient transitioned back to Lovenox. At discharge patient without hypoxia. Room-air saturations within normal range. At discharge, no significant difficulty with ambulation. Patient stable for discharge. Pulmonology recommends life long chronic anti coagulation therapy. At discharge patient will be given samples of Eliquis by pulmonology. Patient will continue with Eliquis 10 mg twice daily for 7 days then continue with 5 mg 1 pill twice daily. Patient to make arrangements to follow up with PCP on Wednesday at the [facility] in [facility]. Patient will need to continue with chronic anti coagulation therapy as recommended. Recommend to follow up with pulmonology at the [facility] in [place] in 1-2 weeks to follow up this hospitalization and continue his care. At discharge please note meloxicam has been discontinued since the patient will be on anti coagulation therapy. Will recommend no further use of nonsteroidal anti-inflammatories due to chronic anti coagulation therapy. Education on pulmonary embolism and chronic anti coagulation therapy will be provided. The importance of close follow up and continuing use of medication given was addressed in detail with the patient. He understands. Patient with diabetes mellitus type 2, non insulin dependent. Blood sugars have remained stable. At discharge he will continue with his medication- metformin 500 mg 2 pills twice daily. Recommend to maintain blood sugars less 140 fasting and less than 200 after meals. Further adjustment can be done by his PCP. Patient with hypertension. Blood pressure remained stable. At discharge he may continue with lisinopril 5 mg daily daily. Recommend to maintain blood pressures less 150/80. Further adjustment can be done by his PCP. Patient with hyperlipidemia. At discharge he will continue with his medication- Lipitor 20 mg daily. Patient with history of GERD. At discharge he will continue with his medication -Pepcid 20 mg 1 pill twice daily. Patient had CT scan of the neck. It showed 15 degrees of type 1 atlantoaxial rotary subluxation. Patient was initially with a trach collar. This was discontinued without difficulty. The CT scan also showed a 2.8 cm low-density mass along the right floor of the right maxillary sinus. This could be retention cyst. Malignancy etiology not suspected. Will recommend ENT evaluation as an outpatient to further evaluate. Patient with diabetic neuropathy. Patient may continue with his medication of gabapentin 1200 mg 1 pill twice daily. Vital Signs/Physical Exam: Temp Pulse Resp BP Pulse Ox 98.4 F 92 H 20 151/93 H 96 03/29/19 21:45 03/29/19 21:45 03/29/19 21:45 03/29/19 21:45 03/29/19 21:45 General: Alert, In no apparent distress, Oriented x3, Cooperative HEENT: Atraumatic Neck: Supple Respiratory: Clear to auscultation bilaterally, Normal air movement Cardiovascular: Normal pulses, Regular rate/rhythm Gastrointestinal: Normal bowel sounds, Soft and benign, Non-distended, No tenderness, No masses, No rebound, No guarding Musculoskeletal: No erythema, No tenderness, No warmth Integumentary: No tenderness/swelling, No erythema, No warmth, No cyanosis Neurological: Normal speech, Normal strength at 5/5 x4 extr, Normal tone, Normal affect Laboratory Data at Discharge: WBC 5.8 K/uL (4.3-10.9) D 03/30/19 03:27 Hgb 12.1 g/dL (13.6-17.9) L 03/30/19 03:27 Hct 35.4 % (39.6-49.0) L 03/30/19 03:27 Plt Count 177 K/uL (152-406) 03/30/19 03:27 PT 14.0 SECONDS (9.5-12.5) H 03/28/19 20:15 INR 1.19 03/28/19 20:15 APTT 71.1 SECONDS (24.3-36.9) H 03/29/19 03:58 Sodium 142 mmol/L (136-145) 03/30/19 03:27 Potassium 3.7 mmol/L (3.5-5.1) 03/30/19 03:27 BUN 20 mg/dL (7-18) H 03/30/19 03:27 Creatinine 1.16 mg/dL (0.55-1.3) 03/30/19 03:27 Glucose 120 mg/dL (74-106) H 03/30/19 03:27 Magnesium 1.9 mg/dL (1.8-2.4) 03/30/19 03:27 Total Bilirubin 0.9 mg/dL (0.2-1.0) 03/27/19 13:47 AST 20 U/L (15-37) 03/27/19 13:47 ALT 38 U/L (12-78) 03/27/19 13:47 Alkaline Phosphatase 96 U/L (45-117) 03/27/19 13:47 Troponin I < 0.02 ng/mL (0.0-0.045) 03/28/19 02:47 Triglycerides 281 mg/dL (<150) H 03/28/19 02:47 Cholesterol 157 mg/dL (<200) 03/28/19 02:47 HDL Cholesterol 33 mg/dL (40-60) L 03/28/19 02:47 Cholesterol/HDL Ratio 4.76 03/28/19 02:47 Home Medications: Atorvastatin Calcium [Lipitor*] 20 mg PO BEDTIME 03/28/19 Erythromycin Opth [Erythromycin Eye Ointment*] 3.5 appl OP TID 03/28/19 Gabapentin [Neurontin*] 1,200 mg PO BID 03/28/19 Lisinopril [Prinivil*] 5 mg PO DAILY 03/28/19 Metformin HCl [Glucophage*] 2 tab PO BIDWM 03/28/19 Omeprazole 20 mg PO DAILY 03/28/19 Famotidine [Pepcid] 20 mg PO BID #60 tab 03/30/19 New Medications: Famotidine [Pepcid] 20 mg PO BID #60 tab Patient Discharge Instructions: 1. Patient presented with shortness of breath with syncopal episode. Patient had been traveling from [place] to [place]. Patient originally from [place]. Patient found to have extensive bilateral pulmonary saddle embolism with mild right ventricular heart strain complicated with right popliteal DVT. Patient was admitted to ICU for treatment. Patient seen and evaluated by Pulmonology and Cardiology. Patient initially started on a Lovenox. Pulmonology recommended tPA. Lovenox was transitioned to tPA due to increasing shortness of breath. Patient tolerated tPA well. Patient transitioned back to Lovenox. At discharge patient without hypoxia. Room-air saturations within normal range. At discharge, no significant difficulty with ambulation. Patient stable for discharge. Pulmonology recommends life long chronic anti coagulation therapy. At discharge patient will be given samples of Eliquis by pulmonology. Patient will continue with Eliquis 10 mg twice daily for 7 days then continue with 5 mg 1 pill twice daily. Patient to make arrangements to follow up with PCP on Wednesday at the [facility] in [facility]. Patient will need to continue with chronic anti coagulation therapy as recommended. Recommend to follow up with pulmonology at the [facility] in [place] in 1-2 weeks to follow up this hospitalization and continue his care. At discharge please note meloxicam has been discontinued since the patient will be on anti coagulation therapy. Will recommend no further use of nonsteroidal anti-inflammatories due to chronic anti coagulation therapy. Education on pulmonary embolism and chronic anti coagulation therapy will be provided. The importance of close follow up and continuing use of medication given was addressed in detail with the patient. He understands. 2. Patient with diabetes mellitus type 2, non insulin dependent. Blood sugars have remained stable. At discharge he will continue with his medication-metformin 500 mg 2 pills twice daily. Recommend to maintain blood sugars less 140 fasting and less than 200 after meals. Further adjustment can be done by his PCP. 3. Patient with hypertension. Blood pressure remained stable. At discharge he may continue with lisinopril 5 mg daily daily. Recommend to maintain blood pressures less 150/80. Further adjustment can be done by his PCP. 4. Patient with hyperlipidemia. At discharge he will continue with his medication-Lipitor 20 mg daily. 5. Patient with history of GERD. At discharge he will continue with his medication-Pepcid 20 mg 1 pill twice daily. 6. Patient had CT scan of the neck. It showed 15 degrees of type 1 atlantoaxial rotary subluxation. Patient was initially with a trach collar. This was discontinued without difficulty. 7. The CT scan also showed a 2.8 cm low-density mass along the right floor of the right maxillary sinus. This could be retention cyst. Malignancy etiology not suspected. Will recommend ENT evaluation as an outpatient to further evaluate. 8. Patient with diabetic neuropathy. Patient may continue with his medication of gabapentin 1200 mg 1 pill twice daily. Diet: AHA Activity: Fall precautions Time spent managing pt's care (in minutes): 55
[2019-03-30 10:30] VITALS: O2SAT 94
--- NOTE | 2019-03-30 13:28 | P.PN ---
Subjective Date of Service: 03/30/19 Primary Care Provider: FABIAN Greenberg([facility] [place] [facility]) Chief Complaint: Pulmonary embolism Subjective: Improving (Patient is doing much better he did ambulate normal chest pressure oxygenation satisfactory) Review of Systems 10-point ROS is otherwise unremarkable Physical Examination - Vital Signs Temperature: 98.4 F Blood Pressure: 151/93 Pulse: 92 Respirations: 20 Pulse Ox (%): 96 - Physical Exam General: Alert, Oriented x3 Neck: Supple Respiratory: Clear to auscultation bilaterally - Studies Medications List Reviewed: Yes Assessment & Plan - Problems (Diagnosis) (1) Pulmonary embolism Current Visit: Yes Status: Acute Plan: Patient is 58 years of age admitted with massive pulmonary embolism status post thrombolytics therapy he is doing much better oxygenation vital signs satisfactory he denies any shortness of breath still has some occasional coughing spells he is able to ambulate can be discharged home on Eliquis 10 mg twice a day for 7 days and 5 mg twice a day I have emphasized him again that he needs lifelong anticoagulation patient to go back to you try and contact his primary care immediately he was given some samples 56 pills of 5 mg Eliquis Qualifiers: Acute cor pulmonale presence: without acute cor pulmonale Physician Review Additional Text: Impression: Shortness of breath with syncope secondary to extensive bilateral pulmonary saddle embolism with mild right ventricular heart strain complicated with right popliteal DVT Diabetes mellitus type 2, non insulin dependent Hypertension Hyperlipidemia GERD Abnormal CT scan: Type 1 atlantoaxial rotatory subluxation and 2.8 cm low- density mass to the right floor of right maxillary sinus Acute renal insufficiency Plan: Shortness of breath with syncope secondary to extensive bilateral pulmonary saddle embolism with mild right ventricular heart strain complicated with right popliteal DVT: Patient remains in ICU. Patient was given tPA yesterday. Patient now transition back to Lovenox. Will continue to monitor closely. What physical therapy assess ambulation. Case discussed at length with pulmonology. Pulmonology anticipates significant improvement. Will have physical therapy assess ambulation. If patient continues to have hypoxia and difficulty breathing. Patient may require further cardiovascular intervention which may require transfer. Will continue to pursue transfer to [facility] at patient request. If the patient continues to improve then will transition to oral chronic anti coagulation therapy. Patient will require lifelong chronic anti coagulation therapy. Patient plans to go back to [place] at discharge. Will discuss with patient and family further. It Diabetes mellitus type 2, non insulin dependent: Continue with insulin sliding scale. Will monitor Accu-Cheks. Hypertension: Continue with lisinopril. Will monitor and adjust appropriately. Hyperlipidemia: Continue with Lipitor. GERD: Continue with medication. Abnormal CT scan: CT neck showing 15 decrease of type 1 atlantoaxial rotary subluxation. It also shows a 2.8 cm low-density mass along the right floor of the right maxillary sinus. This could be retention cyst. Will discuss with radiology. Malignancy etiology not suspected. Will recommend ENT evaluation as an outpatient. Acute renal insufficiency: Will continue to monitor closely. Overall stable. Will monitor closely. Patient may have underlying chronic renal disease.
== END 2019-03-30 15:11 | disposition home or self-care (01) | DRG 176 ==
LOC: ER 12:58 → ERHOLD 15:20 → 3RD-ICU 17:03 → 4TH 03-29 21:30
PROVIDERS: ADMIT Family Medicine; ATTEND Family Medicine
DX: I26.92 Saddle embolus of pulmonary artery without acute cor pulmonale (principal); I82.431 Acute embolism and thrombosis of right popliteal vein; S13.120A Subluxation of C1/C2 cervical vertebrae, initial encounter; I51.89 Other ill-defined heart diseases; E11.40 Type 2 diabetes mellitus with diabetic neuropathy, unspecified; I10 Essential (primary) hypertension; E78.5 Hyperlipidemia, unspecified; R22.0 Localized swelling, mass and lump, head; K21.9 Gastro-esophageal reflux disease without esophagitis; K44.9 Diaphragmatic hernia without obstruction or gangrene; W19.XXXA Unspecified fall, initial encounter; I27.20 Pulmonary hypertension, unspecified; N28.9 Disorder of kidney and ureter, unspecified; Z79.84 Long term (current) use of oral hypoglycemic drugs; Z85.820 Personal history of malignant melanoma of skin
CPT/HCPCS: 36415; 70450; 71045; 71275; 72125; 80048; 80061; 80076; 82550; 82553; 82962; 83735; 83880; 84439; 84443; 84484; 85025; 85379; 85610; 85730; 93005; 93306; 93970; 94640; 96372; 97162; 99285; J1650; J2997; Q9967